=== PATIENT | female | born 1965 | race Caucasian/White ===

== ENCOUNTER 2017-02-09 06:45 | Emergency (ER) | payer MEDICAID ==
[~2017-02-09] VITALS: Ht 162.6 cm; Wt 121.6 kg
[~2017-02-09 06:45] MED LIST: HYDR25TA4; NAPROSYN; PROPANOLOL; ZOLP-158
[2017-02-09 07:21] VITALS: BP 130/88
[2017-02-09] MEDS ORDERED: ONDANSETRON HCL 4 MG/2 ML VIAL IM ONE (08:15)
[2017-02-09] MEDS ORDERED: HYDROmorphone HCL 2 MG/ML VL IM ONE (08:15)
[2017-02-09] MEDS ORDERED: METHOCARBAMOL 500 MG TAB PO ONE (08:15)
[2017-02-09] MEDS ORDERED: methylPREDNISolone SOD SUCC 125 MG/2 ML VL IM ONE (08:15)
== END 2017-02-09 09:12 | disposition home or self-care (01) ==
LOC: EDUNIT# 06:45 → ER 06:45
DX: M54.42 Lumbago with sciatica, left side (principal); E11.9 Type 2 diabetes mellitus without complications; I10 Essential (primary) hypertension; G89.29 Other chronic pain; E66.9 Obesity, unspecified; Z68.42 Body mass index [BMI] 45.0-49.9, adult
CPT/HCPCS: 96372; 99284; J1170; J2405; J2930

== ENCOUNTER 2017-07-21 20:05 | Emergency (ER) | payer MEDICAID, OTHER ==
[~2017-07-21] VITALS: Ht 162.6 cm; Wt 122.5 kg
[2017-07-21 21:20] LABS: Basophils # (auto) 0.1 uL; Basophils % (auto) 0.8 % (0.0-2.0); Eosinophils # (auto) 0.3 uL; Eosinophils % (auto) 4.1 % (0.0-7.0); Hematocrit 41.5 % (36.0-46.0); Hemoglobin 13.4 g/dL (12.2-16.2); Lymphocytes # (auto) 2.3 uL; Lymphocytes % (auto) 33.1 % (10.0-50.0); Mean Corpuscular Hemoglobin 27.3 pg (28.0-32.0); Mean Corpuscular Hgb Conc. 32.3 g/dL (32.0-36.0); Mean Corpuscular Volume 84.4 fL (80.0-100.0); Monocytes # (auto) 0.5 uL; Monocytes % (auto) 6.7 % (0.0-12.0); Neutrophils # (auto) 3.8 uL; Neutrophils % (auto) 55.3 % (37.0-80.0); Nucleated Red Blood Cells % 0.1 %; Platelet Count (auto) 241 10^3/uL (140-450); Red Blood Cells 4.92 10^6/uL (4.0-5.20); Red Cell Distribution Width 14.3 % (11.8-14.3)
[2017-07-21 21:24] LABS: Albumin 3.6 g/dL (3.4-5.0); BUN/Creatinine Ratio 16.7; Bilirubin, Total 0.2 mg/dL (0.2-1.0); Calcium 8.6 mg/dL (8.5-10.1); Total Protein 7.6 g/dL (6.4-8.2)
[2017-07-21 21:28] LABS: INR 0.97 (0.9-1.15); Partial Thromboplastin Time 26.1 sec (22.64-33.71); Prothrombin Time 10.6 sec (9.37-12.3)
[2017-07-21 21:52] LABS: Urine Bacteria NONE SEEN /hpf (None Seen); Urine Blood 3+ /uL (Negative); Urine Specific Gravity 1.014 (1.001-1.035); Urine WBC 1 /hpf (0 - 5)
[2017-07-22 04:56] VITALS: BP 159/89
== END 2017-07-22 05:42 | disposition home or self-care (01) ==
LOC: ER 20:05
DX: N92.0 Excessive and frequent menstruation with regular cycle (principal); E11.9 Type 2 diabetes mellitus without complications; I10 Essential (primary) hypertension; G43.909 Migraine, unspecified, not intractable, without status migrainosus; Z88.8 Allergy status to other drugs, medicaments and biological substances; E66.01 Morbid (severe) obesity due to excess calories; Z68.42 Body mass index [BMI] 45.0-49.9, adult
CPT/HCPCS: 36415; 80053; 81001; 84702; 85025; 85610; 85730

== ENCOUNTER 2021-02-14 13:34 | Inpatient (IN) | payer MEDICAID ==
[~2021-02-14] VITALS: Ht 160 cm; Wt 118.3 kg
[~2021-02-14 13:34] MED LIST changes: -ZOLP-158; +ZOLP5TAB
[2021-02-14 15:10] LABS: Basophils # (auto) 0 10 ^3/uL (0-0.2); Basophils % (auto) 0.3 % (0.0-2.0); Eosinophils # (auto) 0 10 ^3/uL (0-0.8); Eosinophils % (auto) 0.3 % (0.0-7.0); Hematocrit 48.5 % (36.0-46.0); Hemoglobin 16.4 g/dL (12.2-16.2); Lymphocytes # (auto) 0.8 10 ^3/uL (0.4-5.4); Lymphocytes % (auto) 27.8 % (10.0-50.0); Mean Corpuscular Hemoglobin 28.2 pg (28.0-32.0); Mean Corpuscular Hgb Conc. 33.8 g/dL (32.0-36.0); Mean Corpuscular Volume 83.4 fL (80.0-100.0); Monocytes # (auto) 0.3 10 ^3/uL (0-1.3); Monocytes % (auto) 10.9 % (0.0-12.0); Neutrophils # (auto) 1.7 10 ^3/uL (1.6-8.6); Neutrophils % (auto) 60.7 % (37.0-80.0); Nucleated Red Blood Cells % 0.4 %; Red Blood Cells 5.82 10^6/uL (4.0-5.20); Red Cell Distribution Width 14.5 % (11.8-14.3); White Blood Cell 2.8 10^3/uL (4.4-10.8)
[2021-02-14] MEDS ORDERED: ASCORBIC ACID 500 MG TAB PO ONE (15:15)
[2021-02-14] MEDS ORDERED: SODIUM CHLORIDE 0.9% 1,000 ML IV ONE (15:15)
[2021-02-14] MEDS ORDERED: SODIUM CHLORIDE 0.9% 500 ML IVB ONE (15:15)
[2021-02-14] MEDS ORDERED: AZITHROMYCIN 500MG/ 250ML 250 ML IV ONE (15:15)
[2021-02-14] MEDS ORDERED: cefTRIAXone 1GM/50ML D5W 50 ML IV ONE (15:15)
[2021-02-14] MEDS ORDERED: CHOLECALCIFEROL (VITD3) 2,000 UNIT CAP/TAB PO ONE (15:15)
[2021-02-14] MEDS ORDERED: ZINC SULFATE 220mg CAP or TAB PO ONE (15:15)
[2021-02-14 15:32] LABS: Alanine Aminotransferase 37 U/L (13-56); Anion Gap 8 (5-15); Aspartate Aminotransferase 59 U/L (15-37); BUN/Creatinine Ratio 14.1; Blood Urea Nitrogen 12 mg/dL (7-18); Calcium 8.4 mg/dL (8.5-10.1); Carbon Dioxide 28 mmol/L (21-32); Chloride 98 mmol/L (98-107); GFR African American 90 mL/min; GFR Non-African American 74 mL/min; Glucose 97 mg/dL (74-106); Potassium 3.5 mmol/L (3.5-5.1); Sodium 134 mmol/L (136-145)
[2021-02-14 15:37] LABS: Alkaline Phosphatase 107 U/L (45-117); Bilirubin, Total 0.4 mg/dL (0.2-1.0); Total Protein 7.7 g/dL (6.4-8.2)
[2021-02-14 17:20] LABS: Urine Bacteria FEW /hpf (None Seen); Urine Blood 2+ /uL (Negative); Urine Mucus FEW (None Seen); Urine WBC 101 /hpf (0 - 5); Urine WBC Clumps PRESENT /hpf (None Seen)
[2021-02-14 17:23] LABS: Urine Specific Gravity > 1.050 (1.001-1.035)
[2021-02-14] MEDS ORDERED: hydrOXYchloroQUINE SULFATE 200 MG TAB PO ONE (17:30)
[2021-02-14] MEDS ORDERED: DexAMETHasone SOD PHOS 10MG/1ML VIAL INJ IV ONE (17:30)
[2021-02-14] MEDS ORDERED: ACETAMINOPHEN 325 MG TAB PO ONE (19:00)
[2021-02-14] MEDS ORDERED: diazePAM 5 MG TAB PO ONE (19:00)
[2021-02-14 19:56] LABS: Magnesium 1.9 mg/dL (1.6-2.6)
[2021-02-14] MEDS ORDERED: ACETAMINOPHEN 500 MG TAB PO PRN (21:15)
[2021-02-14] MEDS ORDERED: DEXTROSE (50%) 50ML SYRG IV PRN (21:30)
[2021-02-14] MEDS ORDERED: DOCUSATE SOD 100 MG CAP PO PRN (21:30)
[2021-02-14] MEDS ORDERED: ONDANSETRON HCL 4 MG/2 ML VIAL IV PRN (21:30)
[2021-02-14] MEDS ORDERED: NITROGLYCERIN 0.4 MG SL TAB SL PRN (21:30)
[2021-02-14] MEDS: InsuLIN REG 1unit/0.01ml Soln (100units/ml) SC SCH (22:00)
[2021-02-14] MEDS: BUDESONIDE (INHALATION) 180 MCG IH IN SCH (22:00)
[2021-02-14 22:19] VITALS: BP 114/68
[2021-02-14] MEDS ORDERED: ACETAMINOPHEN 325 MG TAB PO PRN (23:30)
[2021-02-15] MEDS ORDERED: HYDROmorphone HCL 2 MG/ML VL IV ONE
[2021-02-15] MEDS: SODIUM CHLORIDE 0.9% 1,000 ML IV SCH ×2 (00:28→14:56)
[2021-02-15] MEDS: FAMOTIDINE (10MG/ML) 2ML VL IV SCH ×3 (00:29→22:00)
[2021-02-15] MEDS: DOXYCYCLINE 100MG/250ML 250 ML IV SCH ×2 (00:29→09:48)
[2021-02-15] MEDS: HYDROmorphone HCL 2 MG/ML VL IV PRN ×4 (00:37→23:11)
[2021-02-15] MEDS: ACCU-CHEK COMFORT CURVE STRIP VI SCH ×3 (01:03→10:59)
[2021-02-15 05:00] VITALS: BP 116/67
[2021-02-15] MEDS: InsuLIN REG 1unit/0.01ml Soln (100units/ml) SC SCH ×2 (06:40→10:59)
[2021-02-15 07:03] LABS: Basophils # (auto) 0 10 ^3/uL (0-0.2); Basophils % (auto) 0.2 % (0.0-2.0); Eosinophils # (auto) 0 10 ^3/uL (0-0.8); Hematocrit 41.8 % (36.0-46.0); Hemoglobin 14.1 g/dL (12.2-16.2); Lymphocytes # (auto) 0.7 10 ^3/uL (0.4-5.4); Lymphocytes % (auto) 28.8 % (10.0-50.0); Mean Corpuscular Hemoglobin 27.8 pg (28.0-32.0); Mean Corpuscular Hgb Conc. 33.8 g/dL (32.0-36.0); Mean Corpuscular Volume 82.3 fL (80.0-100.0); Monocytes # (auto) 0.3 10 ^3/uL (0-1.3); Monocytes % (auto) 13.2 % (0.0-12.0); Neutrophils # (auto) 1.3 10 ^3/uL (1.6-8.6); Neutrophils % (auto) 57.8 % (37.0-80.0); Nucleated Red Blood Cells % 0.5 %; Red Blood Cells 5.08 10^6/uL (4.0-5.20); Red Cell Distribution Width 14.2 % (11.8-14.3); White Blood Cell 2.3 10^3/uL (4.4-10.8)
[2021-02-15 07:20] LABS: Potassium 3.4 mmol/L (3.5-5.1)
[2021-02-15 07:29] LABS: Albumin 2.3 g/dL (3.4-5.0); Bilirubin, Total 0.2 mg/dL (0.2-1.0); Calcium 8.1 mg/dL (8.5-10.1); Total Protein 6.4 g/dL (6.4-8.2)
[2021-02-15] MEDS: DexAMETHasone SOD PHOS 10MG/1ML VIAL INJ IV SCH (08:44)
[2021-02-15] MEDS: CHOLECALCIFEROL (VITD3) 2,000 UNIT CAP/TAB PO SCH (08:45)
[2021-02-15] MEDS: ASCORBIC ACID 1,000 MG TAB PO SCH (08:45)
[2021-02-15] MEDS: ZINC SULFATE 220mg CAP or TAB PO SCH (08:45)
[2021-02-15] MEDS: MULTIPLE VITAMIN TAB PO SCH (08:45)
[2021-02-15] MEDS: ENOXAPARIN SOD 40 MG/0.4 ML SYRINGE SC SCH (08:45)
[2021-02-15 09:00] VITALS: BP 111/69
[2021-02-15] MEDS ORDERED: levoFLOXacin 750MG 150 ML IV SCH (10:00)
[2021-02-15] MEDS ORDERED: REMDESIVIR PER PHARMACY 0 ML IV SCH (10:45)
[2021-02-15] MEDS: ALBUTEROL SULF HFA 90MCG INH 200DOSE IN PRN ×2 (11:06→21:00)
[2021-02-15] MEDS: BUDESONIDE (INHALATION) 180 MCG IH IN SCH ×2 (11:06→20:38)
[2021-02-15 13:00] VITALS: BP 101/64
[2021-02-15] MEDS: POTASSIUM CHL 20 Meq TABLET PO SCH ×2 (14:56→21:59)
[2021-02-15] MEDS ORDERED: REMDESIVIR 200 MG in NS 210ml LOADING DOSE ADULT IV ONE (15:00)
[2021-02-15] MEDS ORDERED: BUTA-281 PO (16:38)
[2021-02-15] MEDS ORDERED: AMIT10TA8 PO (16:38)
[2021-02-15] MEDS ORDERED: LOSA25TA38 PO (16:38)
[2021-02-15 16:57] VITALS: BP 109/62
[2021-02-15] MEDS ORDERED: ACETAMINOPHEN PO SCH (21:00)
[2021-02-15] MEDS ORDERED: CAFFEINE PO SCH (21:00)
[2021-02-15] MEDS ORDERED: BUTALBITAL PO SCH (21:00)
[2021-02-15 21:48] VITALS: BP 101/57
[2021-02-15] MEDS: AMITRIPTYLINE HCL 25 MG TAB PO SCH (21:59)
[2021-02-16 05:00] VITALS: BP 92/53
[2021-02-16] MEDS: SODIUM CHLORIDE 0.9% 1,000 ML IV SCH ×2 (06:50→23:30)
[2021-02-16 07:11] LABS: Basophils # (auto) 0 10 ^3/uL (0-0.2); Basophils % (auto) 0.8 % (0.0-2.0); Eosinophils # (auto) 0 10 ^3/uL (0-0.8); Eosinophils % (auto) 0.1 % (0.0-7.0); Hematocrit 41.1 % (36.0-46.0); Hemoglobin 13.7 g/dL (12.2-16.2); Lymphocytes # (auto) 0.8 10 ^3/uL (0.4-5.4); Lymphocytes % (auto) 26.4 % (10.0-50.0); Mean Corpuscular Hemoglobin 27.9 pg (28.0-32.0); Mean Corpuscular Hgb Conc. 33.3 g/dL (32.0-36.0); Mean Corpuscular Volume 83.6 fL (80.0-100.0); Monocytes # (auto) 0.2 10 ^3/uL (0-1.3); Neutrophils # (auto) 1.9 10 ^3/uL (1.6-8.6); Neutrophils % (auto) 64.7 % (37.0-80.0); Nucleated Red Blood Cells % 0.3 %; Red Blood Cells 4.91 10^6/uL (4.0-5.20); Red Cell Distribution Width 14.3 % (11.8-14.3)
[2021-02-16] MEDS: BUDESONIDE (INHALATION) 180 MCG IH IN SCH ×2 (07:24→19:19)
[2021-02-16] MEDS: ALBUTEROL SULF HFA 90MCG INH 200DOSE IN PRN ×2 (07:24→19:19)
[2021-02-16 07:27] LABS: Calcium 8.2 mg/dL (8.5-10.1); Potassium 4.3 mmol/L (3.5-5.1)
[2021-02-16 07:33] LABS: Bilirubin, Total 0.2 mg/dL (0.2-1.0)
[2021-02-16 09:00] VITALS: BP 124/64
[2021-02-16] MEDS: levoFLOXacin 500MG 100 ML IV SCH (09:12)
[2021-02-16] MEDS: CHOLECALCIFEROL (VITD3) 2,000 UNIT CAP/TAB PO SCH (09:13)
[2021-02-16] MEDS: ASCORBIC ACID 1,000 MG TAB PO SCH (09:13)
[2021-02-16] MEDS: DexAMETHasone SOD PHOS 10MG/1ML VIAL INJ IV SCH (09:13)
[2021-02-16] MEDS: FAMOTIDINE (10MG/ML) 2ML VL IV SCH ×2 (09:13→22:23)
[2021-02-16] MEDS: ZINC SULFATE 220mg CAP or TAB PO SCH (09:13)
[2021-02-16] MEDS: MULTIPLE VITAMIN TAB PO SCH (09:13)
[2021-02-16] MEDS: HYDROmorphone HCL 2 MG/ML VL IV PRN ×3 (09:14→22:24)
[2021-02-16] MEDS: ENOXAPARIN SOD 40 MG/0.4 ML SYRINGE SC SCH (09:25)
[2021-02-16] MEDS ORDERED: ACETAMINOPHEN PO PRN (10:00)
[2021-02-16] MEDS ORDERED: CAFFEINE PO PRN (10:00)
[2021-02-16] MEDS ORDERED: BUTALBITAL PO PRN (10:00)
[2021-02-16 13:00] VITALS: BP 127/72
[2021-02-16] MEDS: REMDESIVIR 100mg 100 MG in SODIUM CHL 0.9% 230 ML IV SCH (15:57)
[2021-02-16 17:00] VITALS: BP 113/69
[2021-02-16] MEDS: AMITRIPTYLINE HCL 25 MG TAB PO SCH (22:23)
[2021-02-16] MEDS: guaiFENesin-DM 100/10mg/5ml SYR PO PRN (23:43)
[2021-02-17 05:00] VITALS: BP 109/69
[2021-02-17 06:33] LABS: Potassium 3.8 mmol/L (3.5-5.1)
[2021-02-17 06:46] LABS: Albumin 1.9 g/dL (3.4-5.0); BUN/Creatinine Ratio 22.2; Bilirubin, Total 0.3 mg/dL (0.2-1.0); Calcium 7.9 mg/dL (8.5-10.1); Total Protein 5.9 g/dL (6.4-8.2)
[2021-02-17 07:28] LABS: Basophils # (auto) 0 10 ^3/uL (0-0.2); Basophils % (auto) 0.4 % (0.0-2.0); Eosinophils # (auto) 0 10 ^3/uL (0-0.8); Eosinophils % (auto) 0.1 % (0.0-7.0); Hematocrit 39.1 % (36.0-46.0); Hemoglobin 13.2 g/dL (12.2-16.2); Lymphocytes # (auto) 1.3 10 ^3/uL (0.4-5.4); Lymphocytes % (auto) 39.6 % (10.0-50.0); Mean Corpuscular Hemoglobin 28.5 pg (28.0-32.0); Mean Corpuscular Hgb Conc. 33.9 g/dL (32.0-36.0); Mean Corpuscular Volume 84.2 fL (80.0-100.0); Monocytes # (auto) 0.4 10 ^3/uL (0-1.3); Monocytes % (auto) 11.6 % (0.0-12.0); Neutrophils # (auto) 1.6 10 ^3/uL (1.6-8.6); Neutrophils % (auto) 48.3 % (37.0-80.0); Nucleated Red Blood Cells % 0.4 %; Red Blood Cells 4.65 10^6/uL (4.0-5.20); Red Cell Distribution Width 14.5 % (11.8-14.3); White Blood Cell 3.2 10^3/uL (4.4-10.8)
[2021-02-17] MEDS: ALBUTEROL SULF HFA 90MCG INH 200DOSE IN PRN ×2 (07:37→20:19)
[2021-02-17] MEDS: BUDESONIDE (INHALATION) 180 MCG IH IN SCH ×2 (07:38→20:19)
[2021-02-17 08:52] VITALS: BP 118/68
[2021-02-17] MEDS: ZINC SULFATE 220mg CAP or TAB PO SCH (09:46)
[2021-02-17] MEDS: CHOLECALCIFEROL (VITD3) 2,000 UNIT CAP/TAB PO SCH (09:46)
[2021-02-17] MEDS: DexAMETHasone SOD PHOS 10MG/1ML VIAL INJ IV SCH (09:46)
[2021-02-17] MEDS: ASCORBIC ACID 1,000 MG TAB PO SCH (09:46)
[2021-02-17] MEDS: FAMOTIDINE (10MG/ML) 2ML VL IV SCH ×2 (09:46→21:46)
[2021-02-17] MEDS: levoFLOXacin 500MG 100 ML IV SCH (09:46)
[2021-02-17] MEDS: MULTIPLE VITAMIN TAB PO SCH (09:46)
[2021-02-17] MEDS: ENOXAPARIN SOD 40 MG/0.4 ML SYRINGE SC SCH (09:47)
[2021-02-17] MEDS: guaiFENesin-DM 100/10mg/5ml SYR PO PRN (10:06)
[2021-02-17] MEDS: HYDROmorphone HCL 2 MG/ML VL IV PRN ×3 (10:06→21:58)
[2021-02-17 12:53] VITALS: BP 116/69
[2021-02-17] MEDS: REMDESIVIR 100mg 100 MG in SODIUM CHL 0.9% 230 ML IV SCH (15:24)
[2021-02-17 17:00] VITALS: BP 101/59
[2021-02-17] MEDS: SODIUM CHLORIDE 0.9% 1,000 ML IV SCH (17:11)
[2021-02-17] MEDS: AMITRIPTYLINE HCL 25 MG TAB PO SCH (21:46)
[2021-02-17 22:00] VITALS: BP 113/64
[2021-02-18 03:11] VITALS: BP 113/64
[2021-02-18 05:00] VITALS: BP 107/67
[2021-02-18] MEDS: HYDROmorphone HCL 2 MG/ML VL IV PRN ×4 (05:39→22:01)
[2021-02-18] MEDS: guaiFENesin-DM 100/10mg/5ml SYR PO PRN (05:44)
[2021-02-18 06:43] LABS: Basophils # (auto) 0 10 ^3/uL (0-0.2); Basophils % (auto) 0.3 % (0.0-2.0); Eosinophils # (auto) 0 10 ^3/uL (0-0.8); Hematocrit 38.1 % (36.0-46.0); Hemoglobin 13.2 g/dL (12.2-16.2); Lymphocytes % (auto) 33.7 % (10.0-50.0); Mean Corpuscular Hemoglobin 28.7 pg (28.0-32.0); Mean Corpuscular Hgb Conc. 34.6 g/dL (32.0-36.0); Monocytes # (auto) 0.5 10 ^3/uL (0-1.3); Neutrophils # (auto) 1.5 10 ^3/uL (1.6-8.6); Nucleated Red Blood Cells % 0.2 %; Red Blood Cells 4.59 10^6/uL (4.0-5.20); Red Cell Distribution Width 14.7 % (11.8-14.3)
[2021-02-18 06:52] LABS: Potassium 3.6 mmol/L (3.5-5.1)
[2021-02-18 06:58] LABS: Albumin 1.8 g/dL (3.4-5.0); BUN/Creatinine Ratio 18.8; Bilirubin, Total 0.2 mg/dL (0.2-1.0); Calcium 8.1 mg/dL (8.5-10.1); Total Protein 6.1 g/dL (6.4-8.2)
[2021-02-18] MEDS: BUDESONIDE (INHALATION) 180 MCG IH IN SCH ×2 (07:08→18:55)
[2021-02-18] MEDS: ALBUTEROL SULF HFA 90MCG INH 200DOSE IN PRN ×2 (07:08→18:55)
[2021-02-18 08:44] VITALS: BP 101/63
[2021-02-18] MEDS: DexAMETHasone SOD PHOS 10MG/1ML VIAL INJ IV SCH (09:56)
[2021-02-18] MEDS: MULTIPLE VITAMIN TAB PO SCH (09:58)
[2021-02-18] MEDS: levoFLOXacin 500MG 100 ML IV SCH (09:58)
[2021-02-18] MEDS: FAMOTIDINE (10MG/ML) 2ML VL IV SCH ×2 (09:58→21:50)
[2021-02-18] MEDS: ASCORBIC ACID 1,000 MG TAB PO SCH (09:59)
[2021-02-18] MEDS: ENOXAPARIN SOD 40 MG/0.4 ML SYRINGE SC SCH (09:59)
[2021-02-18] MEDS: ZINC SULFATE 220mg CAP or TAB PO SCH (10:00)
[2021-02-18] MEDS: CHOLECALCIFEROL (VITD3) 2,000 UNIT CAP/TAB PO SCH (10:16)
[2021-02-18] MEDS ORDERED: IOHEXOL 350 MG/ML 100ML IJ ONE ×2 (11:58→15:34)
[2021-02-18 13:00] VITALS: BP 107/64
[2021-02-18] MEDS: REMDESIVIR 100mg 100 MG in SODIUM CHL 0.9% 230 ML IV SCH (15:04)
[2021-02-18] MEDS: LOPERAMIDE HCL 2 MG CAP PO PRN ×2 (16:40→20:19)
[2021-02-18 16:56] VITALS: BP 126/65
[2021-02-18] MEDS: SODIUM CHLORIDE 0.9% 1,000 ML IV SCH (20:00)
[2021-02-18] MEDS: AMITRIPTYLINE HCL 25 MG TAB PO SCH (21:50)
[2021-02-18 22:00] VITALS: BP 127/67
[2021-02-19] MEDS: SODIUM CHLORIDE 0.9% 1,000 ML IV SCH ×2 (01:30→17:46)
[2021-02-19 05:00] VITALS: BP 125/75
[2021-02-19] MEDS: HYDROmorphone HCL 2 MG/ML VL IV PRN ×3 (06:55→21:58)
[2021-02-19] MEDS: LOPERAMIDE HCL 2 MG CAP PO PRN ×2 (06:56→11:57)
[2021-02-19] MEDS: BUDESONIDE (INHALATION) 180 MCG IH IN SCH ×2 (07:14→18:48)
[2021-02-19] MEDS: ALBUTEROL SULF HFA 90MCG INH 200DOSE IN PRN ×2 (07:14→18:47)
[2021-02-19 09:00] VITALS: BP 120/70
[2021-02-19] MEDS: DexAMETHasone SOD PHOS 10MG/1ML VIAL INJ IV SCH (09:25)
[2021-02-19] MEDS: CHOLECALCIFEROL (VITD3) 2,000 UNIT CAP/TAB PO SCH (09:26)
[2021-02-19] MEDS: MULTIPLE VITAMIN TAB PO SCH (09:26)
[2021-02-19] MEDS: FAMOTIDINE (10MG/ML) 2ML VL IV SCH ×2 (09:26→21:58)
[2021-02-19] MEDS: ASCORBIC ACID 1,000 MG TAB PO SCH (09:26)
[2021-02-19] MEDS: ENOXAPARIN SOD 40 MG/0.4 ML SYRINGE SC SCH (09:26)
[2021-02-19] MEDS: ZINC SULFATE 220mg CAP or TAB PO SCH (09:26)
[2021-02-19] MEDS: levoFLOXacin 500MG 100 ML IV SCH (09:26)
[2021-02-19 12:43] VITALS: BP 115/63
[2021-02-19] MEDS: REMDESIVIR 100mg 100 MG in SODIUM CHL 0.9% 230 ML IV SCH (14:49)
[2021-02-19 16:36] VITALS: BP 122/72
[2021-02-19] MEDS ORDERED: ZINC220C8 PO (18:42)
[2021-02-19] MEDS ORDERED: ALBUAER3 IN (18:42)
[2021-02-19] MEDS ORDERED: ASCO10003 PO (18:42)
[2021-02-19] MEDS ORDERED: DEXT1SYP9 PO (18:42)
[2021-02-19] MEDS ORDERED: CHOL1CAP47 PO (18:42)
[2021-02-19] MEDS ORDERED: DEXA6TAB6 PO (18:42)
[2021-02-19] MEDS: guaiFENesin-DM 100/10mg/5ml SYR PO PRN (19:49)
[2021-02-19] MEDS: AMITRIPTYLINE HCL 25 MG TAB PO SCH (21:58)
[2021-02-19 22:00] VITALS: BP 126/75
[2021-02-20 05:00] VITALS: BP 121/74
[2021-02-20] MEDS: HYDROmorphone HCL 2 MG/ML VL IV PRN (06:43)
[2021-02-20 08:40] VITALS: BP 128/68
[2021-02-20] MEDS: ALBUTEROL SULF HFA 90MCG INH 200DOSE IN PRN (09:09)
[2021-02-20] MEDS: BUDESONIDE (INHALATION) 180 MCG IH IN SCH (09:09)
[2021-02-20] MEDS: levoFLOXacin 500MG 100 ML IV SCH (10:00)
[2021-02-20] MEDS: ENOXAPARIN SOD 40 MG/0.4 ML SYRINGE SC SCH (10:00)
[2021-02-20] MEDS: FAMOTIDINE (10MG/ML) 2ML VL IV SCH (10:00)
[2021-02-20] MEDS: DexAMETHasone SOD PHOS 10MG/1ML VIAL INJ IV SCH (10:18)
[2021-02-20] MEDS: ASCORBIC ACID 1,000 MG TAB PO SCH (10:19)
[2021-02-20] MEDS: MULTIPLE VITAMIN TAB PO SCH (10:19)
[2021-02-20] MEDS: ZINC SULFATE 220mg CAP or TAB PO SCH (10:19)
[2021-02-20] MEDS: CHOLECALCIFEROL (VITD3) 2,000 UNIT CAP/TAB PO SCH (10:20)
== END 2021-02-20 11:25 | disposition home health service (06) | DRG 137 ==
LOC: ER 13:34 → TELE 21:32 → TELE-EAST 23:31
PROVIDERS: ADMIT Nurse Practitioner Family; ATTEND Internal Medicine
PROC: 05HB33Z Insertion of Infusion Device into Right Basilic Vein, Percutaneous Approach (ICD-10-PCS; principal; 2021-02-15)
PROC: B54MZZA Ultrasonography of Right Upper Extremity Veins, Guidance (ICD-10-PCS; 2021-02-15)
PROC: XW033E5 Introduction of Remdesivir Anti-infective into Peripheral Vein, Percutaneous Approach, New Technology Group 5 (ICD-10-PCS; 2021-02-15)
DX: U07.1 COVID-19 (principal); J96.01 Acute respiratory failure with hypoxia; J12.82 Pneumonia due to coronavirus disease 2019; E44.1 Mild protein-calorie malnutrition; N30.01 Acute cystitis with hematuria; I10 Essential (primary) hypertension; E66.9 Obesity, unspecified; F32.9 Major depressive disorder, single episode, unspecified; E11.9 Type 2 diabetes mellitus without complications; E87.6 Hypokalemia; J98.11 Atelectasis; G43.909 Migraine, unspecified, not intractable, without status migrainosus; Z86.73 Personal history of transient ischemic attack (TIA), and cerebral infarction without residual deficits; Z79.899 Other long term (current) drug therapy; Z88.6 Allergy status to analgesic agent; Z88.5 Allergy status to narcotic agent; Z88.8 Allergy status to other drugs, medicaments and biological substances; Z68.42 Body mass index [BMI] 45.0-49.9, adult; I69.30 Unspecified sequelae of cerebral infarction
CPT/HCPCS: 36415; 36600; 71045; 71275; 80053; 81001; 82306; 82728; 82805; 82962; 83036; 83605; 83615; 83690; 83735; 84443; 84484; 85025; 85379; 86141; 87086; 87426; 87493; 93005; 93970; 94640; 96365; 96367; G0378; J0696; J1100; J1956; J2405; J3490

== ENCOUNTER 2024-12-12 18:53 | Inpatient (IN) | payer MEDICAID ==
[~2024-12-12] VITALS: Ht 162.6 cm; Wt 138.0 kg
[~2024-12-12 18:53] MED LIST changes: +ALBUAER3 IN; +AMIT-400 PO; +ASCO10003 PO; +BUTA-281 PO; +CHOL1CAP47 PO; +DEXA6TAB6 PO; +DEXT1SYP9 PO; -HYDR25TA4; -NAPROSYN; -PROPANOLOL; +ZINC220C8 PO; -ZOLP5TAB
--- NOTE | 2024-12-12 19:44 | ED.PDOC ---
SOB-HPI HPI Comments 59y F who presents to the ED for chief complaint of shortness of breath. Pt states she has been having shortness of breath with associated bilateral lower extremity swelling for the past 2 days. Pt otherwise denies chest pain, diaphoresis, palpitations, fever, cough, chills, or any associated symptoms. Pt otherwise has no cardiac history. Pt denies any other symptoms at this time. Chief Complaint: Extremity Swelling Time Seen by MD: 19:41 Primary Care Provider: OFELIA Reid notes: Medications, Allergies Information Source: Patient Mode of Arrival: Ambulatory Past Medical History PAST MEDICAL HISTORY: CVA, Depression, DM, HTN, Denies Surgical History: SEAM CLOSER History: No Pertinent SEAM CLOSER History Family History Family History: Unknown Social History Smoker: Non-Smoker Alcohol: Occasionally Drugs: Denies Drug Use Lives In: Home Constitutional: denies: chills, diaphoresis, fatigue, fever, malaise, sweats, weakness, others EENTM: denies: blurred vision, double vision, ear bleeding, ear discharge, ear drainage, ear pain, ear ringing, eye pain, eye redness, hearing loss, mouth pain, mouth swelling, nasal discharge, nose bleeding, nose congestion, nose pain, photophobia, tearing, throat pain, throat swelling, voice changes, others Respiratory: reports: shortness of breath; denies: cough, hemoptysis, orthopnea, SOB at rest, SOB with excertion, stridor, wheezing, others Cardiovascular: denies: chest pain, dizzy spells, diaphoresis, Dyspnea on exertion, edema, irregular heart beat, left arm pain, lightheadedness, pa lpitations, PND, syncope, others Gastrointestinal: denies: abdomen distended, abdominal pain, blood streaked bowels, constipated, diarrhea, dysphagia, difficulty swallowing, hematemesis, melena, nausea, poor appetite, poor fluid intake, rectal bleeding, rectal pain, vomiting, others Genitourinary: denies: abnormal vagina bleeding, burning, dyspareunia, dysuria, flank pain, frequency, hematuria, incontinence, pain, , vagina discharge, urgency, others Neurological: denies: dizziness, fainting, headache, left sided numbness, left sided weakness, numbness, paresthesia, pre-existing deficit, right sided numbness, right sided weakness, seizure, speech problems, tingling, tremors, weakness, others Musculoskeletal: reports: joint swelling (b/l lower extremity swelling); denies : back pain, gout, joint pain, muscle pain, muscle stiffness, neck pain, others Integumetry: denies: bruises, change in color, change in hair/nails, dryness, laceration, lesions, lumps, rash, wounds, others Allergic/Immunocompromised: denies: Difficulty Healing, Frequent Infections, Hives, Itching, others Hematologic/Lymphatic: denies: anemia, blood clots, easy bleeding, easy bruising, swollen glands, others Endocrine: denies: excessive hunger, excessive sweating, excessive thirst, excessive urination, flushing, intolerance to cold, intolerance to heat, unexplained weight gain, unexplained weight loss, others Psychiatric: denies: anxiety, bipolar disorder, depression, hopeless, panic disorder, schizophrenia, sleepless, suicidal, others All Other Systems: Reviewed and Negative Physical Exam General Appearance: No Apparent Distress, Normal HEENT: Normal ENT Inspection, Pharynx Normal, TMs Normal Neck: Full Range of Motion, Non-Tender, Normal, Normal Inspection Respiratory: Chest Non-Tender, Lungs Clear, No Accessory Muscle Use, No Res piratory Distress, Normal Breath Sounds Cardiovascular: No Edema, No JVD, No Murmur, No Gallop, Normal Peripheral Pulses, Regular Rate/Rhythm Breast Exam: Deferred Gastrointestinal: No Organomegaly, Non Tender, No Pulsatile Mass, Normal Bowel Sounds, Soft Genitalia: Deferred Pelvic: Deferred Rectal: Deferred Extremities: No calf tenderness, Normal capillary refill, Normal inspection, Normal range of motion, Non-tender, No pedal edema Musculoskeletal : Apperance: Normal Neurologic: Alert, insert cutter II-XII nml as Tested, No Motor Deficits, Normal Affect, Normal Mood, No Sensory Deficits Cerebellar Function: Normal Reflexes: Normal Skin: Dry, Normal Color, Warm Lymphatic: No Adenopathy EKG EKG : Pulse Rate (adult): 75 [place]: Normal Cardiac Rhythm: NSR Block: None Hypertrophy: None ST: Normal Was a procedure done? Was a procedure done?: No Differential Dx Differential Diagnosis: Anxiety, Asthma, Bronchitis, CHF, COPD, Pneumonia, Respiratory Distress, URI X-Ray, Labs, Meds, VS Vital Signs Date Time Temp Pulse Resp B/P (MAP) Pulse Ox O2 Delivery O2 Flow Rate FiO2 6/4/25 19:44 75 12/12/24 19:29 75 12/12/24 19:26 98.5 73 16 179/84 (115) 94 98.5 Lab Test 12/12/24 20:28 12/12/24 19:38 Range/Units Troponin I High Sensitivity 8 10 </=34 ng/L White Blood Count 6.1 4.4-10.8 10^3/uL Red Blood Count 5.05 4.0-5.20 10^6/uL Hemoglobin 14.0 12.2-16.2 g/dL Hematocrit 41.7 36.0-46.0 % Mean Corpuscular Volume 82.6 80.0-100.0 fL Mean Corpuscular Hemoglobin 27.8 L 28.0-32.0 pg Mean Corpuscular Hemoglobin Concent 33.7 32.0-36.0 g/dL Red Cell Distribution Width 14.1 11.8-14.3 % Platelet Count 196 140-450 10^3/uL Mean Platelet Volume 8.9 6.9-10.8 fL Neutrophils (%) (Auto) 45.7 37.0-80.0 % Lymphocytes (%) (Auto) 37.9 10.0-50.0 % Monocytes (%) (Auto) 11.7 0.0-12.0 % Eosinophils (%) (Auto) 3.9 0.0-7.0 % Basophils (%) (Auto) 0.8 0.0-2.0 % Neutrophils # (Auto) 2.8 1.6-8.6 10 ^3/uL Lymphocytes # (Auto) 2.3 0.4-5.4 10 ^3/uL Monocytes # (Auto) 0.7 0-1.3 10 ^3/uL Eosinophils # (Auto) 0.2 0-0.8 10 ^3/uL Basophils # (Auto) 0 0-0.2 10 ^3/uL Nucleated Red Blood Cells 0.1 % Sodium Level 141 136-145 mmol/L Potassium Level 4.3 3.5-5.1 mmol/L Chloride Level 107 98-107 mmol/L Carbon Dioxide Level 28 20-31 mmol/L Anion Gap 6 5-15 Blood Urea Nitrogen 16 9-23 mg/dL Creatinine 0.98 0.550-1.02 mg/dL Glomerular Filtration Rate Calc 67 >90 mL/min BUN/Creatinine Ratio 16.3 10.0-20.0 Serum Glucose 90 74-106 mg/dL Calcium Level 10.0 8.7-10.4 mg/dL B-Type Natriuretic Peptide 38.11 0-100 pg/mL Time of 1ST Reevaluation: 20:10 Reevaluation 1ST: Unchanged Patient Education/Counseling: Diagnosis, Treatment Family Education/Counseling: No Family Present Departure 1 Departure Time of Disposition: 21:57 (Patient's worsening shortness of breath and lower extremity edema concerning for heart failure. Patient's labs are benign. Patient's chest x-ray with some vascular congestion. We will admit patient for further workup and expert consultation) Impression: Primary Impression: Shortness of breath Additional Impressions: Lower extremity edema Suspected congestive heart failure Disposition: ADMITTED INPATIENT Admit to: Med Surg Condition: Serious Critical Care Note Critical Care Time?: Yes Critical care comment: Shortness of breath Authorized and Performed by: Mehdi Modi MD Total critical care time: Approximately 39 minutes Due to a high probability of clinically significant, life threatening deterioration, the patient required my highest level of preparedness to intervene emergently and I personally spent this critical care time directly and personally managing the patient. This critical care time included obtaining a history; examining the patient; pulse oximetry; ordering and review of studies; arranging urgent treatment with development of a management plan; evaluation of patient's response to treatment; frequent reassessment; and, discussions with other providers. This critical care time was performed to assess and manage the high probability of imminent, life-threatening deterioration that could result in multi-organ failure. It was exclusive of separately billable procedures and treating other patients and teaching time. Please see my other sections and the rest of the note for further information on patient assessment and treatment. Stability Stability form required: No Heart Score Heart Score: Heart Score Response (Comments) Value History Slightly Suspicious 0 EKG Normal 0 Age 45-64 1 Risk Factors No known risk factors 0 Troponin Normal limit 0 Total 1 I personally scribed for MEHDI MODI MD ([email or web address]) on 12/12/24 at 19:44. Electronically submitted by Ayl Druan (LEX). MEHDI MODI MD Dec 12, 2024 19:44
[2024-12-12 19:56] LABS: Basophils # (auto) 0 10 ^3/uL (0-0.2); Basophils % (auto) 0.8 % (0.0-2.0); Eosinophils # (auto) 0.2 10 ^3/uL (0-0.8); Eosinophils % (auto) 3.9 % (0.0-7.0); Hematocrit 41.7 % (36.0-46.0); Lymphocytes # (auto) 2.3 10 ^3/uL (0.4-5.4); Lymphocytes % (auto) 37.9 % (10.0-50.0); Mean Corpuscular Hemoglobin 27.8 pg (28.0-32.0); Mean Corpuscular Hgb Conc. 33.7 g/dL (32.0-36.0); Mean Corpuscular Volume 82.6 fL (80.0-100.0); Monocytes # (auto) 0.7 10 ^3/uL (0-1.3); Monocytes % (auto) 11.7 % (0.0-12.0); Neutrophils # (auto) 2.8 10 ^3/uL (1.6-8.6); Neutrophils % (auto) 45.7 % (37.0-80.0); Nucleated Red Blood Cells % 0.1 %; Platelet Count (auto) 196 10^3/uL (140-450); Red Blood Cells 5.05 10^6/uL (4.0-5.20); Red Cell Distribution Width 14.1 % (11.8-14.3); White Blood Cell 6.1 10^3/uL (4.4-10.8)
[2024-12-12 19:57] LABS: Potassium 4.3 mmol/L (3.5-5.1); Sodium 141 mmol/L (136-145)
[2024-12-12 19:58] LABS: Anion Gap 6 (5-15); Carbon Dioxide 28 mmol/L (20-31)
[2024-12-12 20:00] LABS: Chloride 107 mmol/L (98-107)
[2024-12-12 20:03] LABS: BUN/Creatinine Ratio 16.3 (10.0-20.0); Blood Urea Nitrogen 16 mg/dL (9-23); Glucose 90 mg/dL (74-106)
--- NOTE | 2024-12-12 21:19 | DVH ---
EXAM: XY CHEST PORTABLE CLINICAL HISTORY: sob TECHNIQUE: Single AP view of the chest WID: COMPARISON: CHEST PORTABLE on DOS: 02/18/21 FINDINGS: Lines and tubes: None Chest: The heart size and pulmonary vasculature is within normal limits. No pleural effusion, pneumothorax, or consolidation. The osseous structures are grossly intact. IMPRESSION: No acute cardiopulmonary abnormality.
[2024-12-12] MEDS: FUROSEMIDE 40 MG/4 ML VIAL IV ONE (22:00)
[2024-12-13] VITALS (9 sets, daily range): BP systolic 122–148; BP diastolic 64–75; PULSE 64–77; RESP 14–18; TEMP 97.7–98; O2SAT 95–99
[2024-12-13] MEDS: NAPROXEN 500 MG TAB PO ONE
[2024-12-13 01:28] LABS: Erythrocyte Sedimentation Rate 13 mm/hr (0-20)
[2024-12-13] MEDS: hydrALAZINE HCL 20 MG/ML VL IV ONE (02:00)
[2024-12-13] MEDS: hydrALAZINE HCL 20 MG/ML VL ONE (02:05)
[2024-12-13] MEDS: NIFEdipine ER 30 MG TAB PO ONE (03:00)
[2024-12-13] MEDS: LOSARTAN POTASSIUM 50 MG TAB PO ONE (03:00)
[2024-12-13] MEDS ORDERED: ONDANSETRON HCL 4 MG/2 ML VIAL IV PRN ×2 (04:15→04:30)
[2024-12-13] MEDS ORDERED: MORPHINE SULFATE INJ 2 MG/ml SYRG IV PRN (04:15)
[2024-12-13] MEDS ORDERED: MORPHINE SULFATE 4 MG/ML SYR/VIAL IV PRN ×2 (04:30)
[2024-12-13] MEDS: MORPHINE SULFATE 4 MG/ML SYR/VIAL ONE (04:46)
--- NOTE | 2024-12-13 04:48 | DVHHPRES ---
History of Present Illness Resident Creating Document: LUMAZACH RESIDENT History of Present Illness Patient is a 59-year-old female with a past medical history of hypertension, chronic back pain, Palacio's palsy left side (about 10 years ago) presented to the ER with a chief complaint of multiple joint ache and bilateral leg swelling. Patient reports on Tuesday night she started to have swelling in both her feet, started with the left leg and then to the right leg and started to have pain in the left ankle, left knee and in the left thigh and had difficulty to walk. Patient also reported pain in the left upper extremity including the left shoulder, elbow and the wrist with the pain in the small joints of the hands as well. Patient reports back pain as well which is chronic and she takes Com[place] and codeine and muscle relaxant tizanidine. Patient denies any blurred vision, headache. She reports not being able to take deep breaths and that her breath catches when she take tries to inhale a deep. Patient denies sleep apnea, orthopnea, PND but reports that she has insomnia and takes trazodone. She also reports of gaining weight more than 70 lb in the last 6-8 months Past medical history: hypertension, chronic back pain, Palacio's palsy left side (about 10 years ago) Surgical history: 1 C section, tonsillectomy Social history: Patient lives with family and denies smoking, alcohol, drug use Family history: Patient's elder sister suffers from rheumatoid arthritis Home medications: Losartan 50 mg, trazodone 50 mg, Comfort, oxycodone, tizanidine Review of Systems Review of Systems Seen and examined at the bedside Complains of multiple joint pain including the left ankle left knee, left elbow left and right shoulder, small joints of the left hand more than the right Denies shortness of breath Allergies: Coded Allergies: Cephalexin (Unverified Allergy, Mild, ITCHING, 02/18/14) Codeine (Verified Allergy, Mild, HIVES, 11/20/10) Lisinopril (Verified Allergy, Unknown, 02/18/14) Medications Current Medications Medications Dose Ordered Sig/Mamadou Route Start Time Stop Time Status Last Admin Dose Admin Losartan Potassium 50 mg DAILY PO 12/13/24 10:00 Acetaminophen/ Hydrocodone Bitart 1 tab Q8HP PRN PO 12/13/24 00:00 Naproxen 250 mg BID PO 12/13/24 10:00 Nifedipine 60 mg DAILY PO 12/13/24 10:00 Ondansetron HCl 4 mg Q6HPRN PRN IV 12/13/24 04:15 Morphine Sulfate 2 mg Q30MP PRN IV 12/13/24 04:30 UNV Exam Vital Signs Vital Signs Date Time Temp Pulse Resp B/P (MAP) Pulse Ox O2 Delivery O2 Flow Rate FiO2 12/13/24 04:00 73 12/13/24 02:05 220/88 12/13/24 01:57 98.5 19 98 98.5 Exam Gen - no pallor, no icterus, no cyanosis, no clubbing, no LAD, no edema . Skin - Patients skin is warm and dry. HEENT - normocephalic, atraumatic, moist mucous membranes. Neck - full ROM, no LAD, no JVD Pulmonary - B/L equal breath sounds, no crackles, no wheezing, no stridor. cardiovascular - regular S1,S2 heard, no added sounds, no murmurs heard. . GI - soft, nontender abdomen. no hepatospleenomegaly. Bowel sounds normoactive Neurological - Patient is A/O X 3 . Bilateral upper extremity strength 5/5, bilateral lower extremity strength 5/5, no facial droop, normal speech, no tremor, no sensory deficiets. Labs/Xrays Labs Test 12/13/24 04:00 12/12/24 22:57 12/12/24 20:28 12/12/24 19:38 Range/Units Troponin I High Sensitivity 10 </=34 ng/L C-Reactive Protein High Sensitivity 0.22 <1.0 mg/dL Thyroid Stimulating Hormone (TSH) 1.95 0.55-4.78 uIU/mL White Blood Count 6.1 4.4-10.8 10^3/uL Red Blood Count 5.05 4.0-5.20 10^6/uL Hemoglobin 14.0 12.2-16.2 g/dL Hematocrit 41.7 36.0-46.0 % Mean Corpuscular Volume 82.6 80.0-100.0 fL Mean Corpuscular Hemoglobin 27.8 L 28.0-32.0 pg Mean Corpuscular Hemoglobin Concent 33.7 32.0-36.0 g/dL Red Cell Distribution Width 14.1 11.8-14.3 % Platelet Count 196 140-450 10^3/uL Mean Platelet Volume 8.9 6.9-10.8 fL Neutrophils (%) (Auto) 45.7 37.0-80.0 % Lymphocytes (%) (Auto) 37.9 10.0-50.0 % Monocytes (%) (Auto) 11.7 0.0-12.0 % Eosinophils (%) (Auto) 3.9 0.0-7.0 % Basophils (%) (Auto) 0.8 0.0-2.0 % Neutrophils # (Auto) 2.8 1.6-8.6 10 ^3/uL Lymphocytes # (Auto) 2.3 0.4-5.4 10 ^3/uL Monocytes # (Auto) 0.7 0-1.3 10 ^3/uL Eosinophils # (Auto) 0.2 0-0.8 10 ^3/uL Basophils # (Auto) 0 0-0.2 10 ^3/uL Nucleated Red Blood Cells 0.1 % Erythrocyte Sedimentation Rate 13 0-20 mm/hr Sodium Level 141 136-145 mmol/L Potassium Level 4.3 3.5-5.1 mmol/L Chloride Level 107 98-107 mmol/L Carbon Dioxide Level 28 20-31 mmol/L Anion Gap 6 5-15 Blood Urea Nitrogen 16 9-23 mg/dL Creatinine 0.98 0.550-1.02 mg/dL Glomerular Filtration Rate Calc 67 >90 mL/min BUN/Creatinine Ratio 16.3 10.0-20.0 Serum Glucose 90 74-106 mg/dL Calcium Level 10.0 8.7-10.4 mg/dL B-Type Natriuretic Peptide 38.11 0-100 pg/mL Assessment/Plan Assessment/Plan ?Rheumatoid arthritis ?Seronegative spondyloarthropathy Hypertensive urgency Hypertensive heart disease Ruled out congestive heart failure - ECG shows sinus rhythm with no ST or T-wave changes - echocardiogram pending - ESR and CRP within normal limits - rheumatoid factor, KATHY, anti CCP pending - TSH normal - patient is started on naproxen - on losartan and nifedipine - CT head without contrast pending PUD prophylaxis: Protonix DVT prophylaxis: Enoxaparin Goals of care discussed with the patient for over 25 minutes. Full code Time spent: 37 minutes Plan discussed with Dr. Corona Plan discussed with: Patient My Orders Orders - ZACH GE Procedure Category Date Status Time Admit ADMIT 12/12/24 Transmitted 23:55 Oxygen By Nasal RT 12/12/24 Transmitted Cannula 23:55 Losartan Tablet PHA 12/13/24 In Process (Cozaar Tablet) 10:00 Hydrocodone-Acet PHA 12/13/24 In Process 10/325mg Tab (Comfort 00:00 Naproxen Tablet PHA 12/13/24 In Process (Naprosyn Tablet) 10:00 Kathy; Direct LAB 12/12/24 Logged 23:55 Ccp Igg/Iga Antibody LAB 12/12/24 Logged 23:55 Echo 2d Mode Cardiac US 12/12/24 Logged DOP 23:55 Cardiac DIET 12/13/24 Transmitted Diet-2gna,Lofat,Lochol Breakfast Pelvis Ap XY 12/13/24 Logged 02:48 Urinalysis LAB 12/13/24 Logged 02:48 Nifedipine Er PHA 12/13/24 In Process (Procardia Xl 10:00 Complete Blood Count LAB 12/13/24 Logged 05:00 Comprehensive LAB 12/13/24 Logged Metabolic Panel 05:00 Ondansetron Hcl PHA 12/13/24 In Process (Zofran) 04:15 Date of Service: Dec 12, 2024 Billing Provider: CRYSTAL CORONA MD Common Visit Codes: 27692-[id number] INP/OBS CARE (HIGH) Secondary Visit Codes: 67643-[id number] CARE PLAN 30 MINUTES ZACH GE RESIDENT Dec 13, 2024 04:48
--- NOTE | 2024-12-13 05:14 | DVH ---
EXAM: XR Xy Pelvis Ap CLINICAL INDICATION: sacroiliac joint degenerative ds TECHNIQUE: X-ray xy pelvis ap. COMPARISON: None FINDINGS: . Moderate degenerative change of the sacroiliac joints, bilaterally. Constipation. No acute fracture dislocation. . IMPRESSION: Degenerative changes as above.
--- NOTE | 2024-12-13 05:44 | DVH ---
EXAM: CT HEAD WITHOUT CONTRAST INDICATION: r/o stroke TECHNIQUE: CT of the head without intravenous contrast. Coronal and sagittal reformatted images are s ubmitted. Radiation Dose : 1. Head: CT Dose: CTDI volume is 58.9 mGy. Dose-length product is 1041.9 mGy*cm The dose indicators for CT are the volume Computed Tomography (CT) Dose Index (CTDIvol) and the Dose Length Product (DLP), and are measured in units of mGy and mGy-cm, respectively. These indicators are not patient dose, but values generated from the CT scanner acquisition factors. The report includes radiation exposure data for exposures received during this examination. All CT scans at this medical facility are performed using dose modulation techniques as appropriate to a performed exam including the following: Automated exposure control was utilized; adjustment of the MA and/or KV according to patient size; and use of iterative reconstruction technique. COMPARISON: None FINDINGS: There is no evidence of acute intracranial hemorrhage, extra-axial collection, mass effect, midline s hift, herniation or hydrocephalus. Hypodensity in the left subinsular region consistent with prominent perivascular space. The ventricles, sulci and cisterns are age appropriate. The babin-white differentiation is intact. The visualized paranasal sinuses and mastoid air cells are clear. No depressed calvarial fracture. The surrounding soft tissues are unremarkable. IMPRESSION: 1. No acute intracranial abnormality.
[2024-12-13 06:02] LABS: Basophils # (auto) 0 10 ^3/uL (0-0.2); Basophils % (auto) 0.5 % (0.0-2.0); Eosinophils # (auto) 0.3 10 ^3/uL (0-0.8); Eosinophils % (auto) 4.1 % (0.0-7.0); Hematocrit 40.7 % (36.0-46.0); Hemoglobin 13.7 g/dL (12.2-16.2); Lymphocytes # (auto) 2.1 10 ^3/uL (0.4-5.4); Lymphocytes % (auto) 34.5 % (10.0-50.0); Mean Corpuscular Hemoglobin 27.6 pg (28.0-32.0); Mean Corpuscular Hgb Conc. 33.6 g/dL (32.0-36.0); Mean Corpuscular Volume 81.9 fL (80.0-100.0); Monocytes # (auto) 0.5 10 ^3/uL (0-1.3); Monocytes % (auto) 8.9 % (0.0-12.0); Neutrophils # (auto) 3.2 10 ^3/uL (1.6-8.6); Nucleated Red Blood Cells % 0.1 %; Platelet Count (auto) 189 10^3/uL (140-450); Red Blood Cells 4.96 10^6/uL (4.0-5.20); Red Cell Distribution Width 13.9 % (11.8-14.3); White Blood Cell 6.2 10^3/uL (4.4-10.8)
[2024-12-13] MEDS: PANTOPRAZOLE 40 MG TAB PO SCH (06:17)
[2024-12-13 06:23] LABS: Alanine Aminotransferase 30 U/L (7-40); Alkaline Phosphatase 86 U/L (46-116); Anion Gap 10 (5-15); BUN/Creatinine Ratio 15.8 (10.0-20.0); Blood Urea Nitrogen 15 mg/dL (9-23); Carbon Dioxide 25 mmol/L (20-31); Chloride 106 mmol/L (98-107); Glucose 98 mg/dL (74-106); Sodium 141 mmol/L (136-145)
[2024-12-13 06:24] LABS: Total Protein 7.1 g/dL (5.7-8.2)
[2024-12-13 06:25] LABS: Albumin 4.2 g/dL (3.2-4.8); Aspartate Aminotransferase 32 U/L (13-40); Bilirubin, Total 0.4 mg/dL (0.2-1.0)
[2024-12-13 06:26] LABS: Potassium 3.4 mmol/L (3.5-5.1)
--- NOTE | 2024-12-13 06:58 | DVHPNRES ---
Progress Note Date Seen: Dec 13, 2024 Resident Creating Document: LISA SHELTON RESIDENT Medical Necessity Reason Pt with a Central, PICC or Fol: No Subjective Review of Systems Patient is a 59-year-old female with a past medical history of hypertension, chronic back pain, Palacio's palsy left side (about 10 years ago) presented to the ER with a chief complaint of multiple joint ache and bilateral leg swelling for the past 3 days. Patient reports on Tuesday night she started to have swelling in both her feet, started with the left leg and then to the right leg and started to have pain in the left ankle, left knee and in the left thigh and had difficulty to walk. Patient also reported pain in the left upper extremity including the left shoulder, elbow and the wrist with the pain in the small joints of the hands as well. Patient reports back pain as well which is chronic and she takes [place] and codeine and muscle relaxant tizanidine. Also says SOB and SOB on exertion, no PND, orthopnea. Reports chest pain, pressure, intermittent, radiates to neck, no nausea or diaphorses. EKG shows NSR. Patient denies any blurred vision, headache. She reports not being able to take deep breaths and that her breath catches when she take tries to inhale a deep. Patient denies sleep apnea, orthopnea, PND but reports that she has insomnia and takes trazodone. She also reports of gaining weight more than 70 lb in the last 6-8 months Past medical history: hypertension, chronic back pain, Palacio's palsy left side (about 10 years ago) Surgical history: 1 C section, tonsillectomy Social history: Patient lives with family and denies smoking, alcohol, drug use Family history: Patient's elder sister suffers from rheumatoid arthritis, Hx of multiple AL in father, mother had stroke. Lost son 17 yr old d/t fentanyl OD Home medications: Losartan 50 mg, trazodone 50 mg, [place], oxycodone, tizanidine Patient seen and examined, has diffuse body pain and tenderness. Covid/flu pending, chest is tender. Echo pending Objective vital signs Vital Sign Date Time Temp Pulse Resp B/P (MAP) Pulse Ox O2 Delivery O2 Flow Rate FiO2 12/13/24 05:45 77 10 148/66 (93) 92 12/13/24 01:57 98.5 98.5 12/13/24 01:45 Nasal Cannula* 2 28 medications Current Medications Medications Dose Ordered Sig/Mamadou Route Start Time Stop Time Status Last Admin Dose Admin Losartan Potassium 50 mg DAILY PO 12/13/24 10:00 Acetaminophen/ Hydrocodone Bitart 1 tab Q8HP PRN PO 12/13/24 00:00 Naproxen 250 mg BID PO 12/13/24 10:00 Nifedipine 60 mg DAILY PO 12/13/24 10:00 Morphine Sulfate 2 mg Q30MP PRN IV 12/13/24 04:30 Ondansetron HCl 4 mg Q6HPRN PRN IV 12/13/24 04:30 Pantoprazole Sodium 40 mg DAILY@0600 PO 12/13/24 06:00 12/13/24 06:17 40 MG Enoxaparin Sodium 40 mg DAILY SC 12/13/24 10:00 Examination Gen - no pallor, no icterus, no cyanosis, no clubbing, no LAD, no edema . Skin - Patients skin is warm and dry. HEENT - normocephalic, atraumatic, moist mucous membranes. Neck - full ROM, no LAD, no JVD Pulmonary - B/L equal breath sounds, no crackles, no wheezing, no stridor. cardiovascular - regular S1,S2 heard, no added sounds, no murmurs heard. P alpable chest tenderness. GI - soft, nontender abdomen. no hepatospleenomegaly. Bowel sounds normoactive Neurological - Patient is A/O X 3 . Bilateral upper extremity strength 5/5, bilateral lower extremity strength 5/5, no facial droop, normal speech, no tremor, no sensory deficiets. laboratory and microbiology Laboratory Tests 12/13/24 05:19 Test 12/13/24 05:19 Range/Units Serum Glucose 98 74-106 mg/dL Labs and/or images reviewed: Labs reviewed by me, Image(s) reviewed by me Problem List/Assessment/Plan Problem List/Assessment/Plan Acute Hypoxix Respiratory Failure likely d/t Obesity Hyperventilation Syndrome -Cont 1 L nc -6 min walk test -Nebulized Albuterol q6prn -CPAP HS Diffuse myalgia and joint pain, r/o covid and flu ? Fibromyalgia ? Rheumatoid arthritis ? Ankylosing spondylitis ? Seronegative spondyloarthropathy Chronic back pain due to Hx of spinal stenosis - ESR and CRP within normal limits - covid/flu negative - rheumatoid factor, MICHAEL, anti CCP pending, HLA B27 pending - TSH normal - patient is started on naproxen - pelvic x-ray shows Moderate degenerative change of the sacroiliac joints, bilaterally. Constipation. No acute fracture dislocation. - Chest pain, r/o ACS - Hypertensive urgency - Hypertensive heart disease - Ruled out congestive heart failure - ECG shows sinus rhythm with no ST or T-wave changes - echocardiogram pending -continue nifedipine 60 mg and losartan 50 mg daily - CT head without contrast shows No acute intracranial abnormality. Obesity -Counseled regarding lifestyle measure PUD prophylaxis: Protonix DVT prophylaxis: Enoxaparin Plan discussed with patient in which all questions have been answered Goals of care discussed for more than 30 minutes, full code status Case discussed with Dr. Herrera Plan discussed with: Patient LISA SHELTON RESIDENT Dec 13, 2024 06:58
[2024-12-13 07:40] LABS: % Iron Saturation 13.7 % (15-50)
[2024-12-13 07:58] LABS: INR 1.04 (0.9-1.15); Partial Thromboplastin Time 26.6 SEC (24.5-34.5)
[2024-12-13] MEDS: HYDROcodone-ACET 10/325MG TAB PO PRN (08:18)
[2024-12-13] MEDS: LOSARTAN POTASSIUM 50 MG TAB PO SCH (10:42)
[2024-12-13] MEDS: NIFEdipine ER 30 MG TAB PO SCH (10:43)
[2024-12-13] MEDS: ENOXAPARIN SOD 40 MG/0.4 ML SYRINGE SC SCH (10:43)
[2024-12-13] MEDS: NAPROXEN 500 MG TAB PO SCH (10:44)
[2024-12-13] MEDS: MAGNESIUM OXIDE 400 MG TAB PO ONE (11:36)
[2024-12-13] MEDS: ACETAMINOPHEN 325 MG TAB PO ONE (11:36)
[2024-12-13] MEDS: BACLOFEN 10 MG TAB PO ONE (11:37)
[2024-12-13] MEDS ORDERED: ALBUTEROL SULF 2.5 MG/0.5ML(0.5%) NEB SOLN NEB ONE (12:15)
[2024-12-13] MEDS ORDERED: ALBUTEROL SULF 2.5 MG/0.5ML(0.5%) NEB SOLN NEB PRN (12:15)
[2024-12-13] MEDS: ALBUTEROL SULF 2.5 MG/0.5ML(0.5%) NEB SOLN ONE (12:30)
[2024-12-13 13:32] LABS: COVID19 ANTIGEN SOFIA FIA NEGATIVE (NEGATIVE)
[2024-12-13 13:41] LABS: Rapid Influenza A Negative (Negative); Rapid Influenza B Negative (Negative)
[2024-12-13] MEDS: ASPirin-EC 81 mg tab PO ONE (13:52)
[2024-12-13] MEDS: CYANOCOBALAMIN (B-12) 1000 MCG/1 ML VIAL IM ONE (13:53)
[2024-12-13] MEDS: ERGOCALCIFEROL 50,000 UNIT(1.25MG) CAP PO SCH (13:55)
[2024-12-13] MEDS ORDERED: HYDR-4072 PO (14:05)
[2024-12-13] MEDS ORDERED: CITA-77 PO (14:05)
[2024-12-13] MEDS ORDERED: TRAZ-228 PO (14:05)
[2024-12-13] MEDS ORDERED: TIZA-142 PO (14:05)
--- NOTE | 2024-12-13 15:42 | DVHSR ---
APPROVED REPORT EXAM: Two-dimensional and M-mode echocardiogram with Doppler and color Doppler. Blood Pressure: 161/79 mmHg INDICATION SOB RISK FACTORS Height: 64, Weight: 289 DIMENSIONS LVDd4.9 (3.8-5.7cm)LA (2D)4.7 (1.9-4.0cm)Aortic Root3.4 (2.0-3.7cm) LVDs3.2 (2.5-4.0cm)LA (MM) (1.9-4.0cm)Aortic Cusp Exc1.7 (1.5-2.0cm) EF (%) 63.0 (55-70%)Rt. Atrium4.6 (1.9-4.0cm)Asc. Aorta cm IVSd1.1 (0.7-1.1cm)RV (D) (1.8-2.4cm) PWd1.3 (0.7-1.1cm) Mitral Valve MitralMitral Stenosis E wave0.92m/sMV Mean GR.mmHg A wave0.89m/sMV Peak GR.60mmHg E/A ratio1.02D MVAcm2 DECEL [id number] 1/2 [id number] IVRTmsDop MVA2.43cm2 Aortic Valve Aortic ValveAortic Stenosis V11.50m/[place] Mean GR.9mmHg V22.05m/[place] Peak GR.17mmHg LVOT Diameter1.9 (1.8-2.4cm)Doppler AVA2.07cm2 Pulmonic Valve V21.21m/s Tricuspid Valve TR Velocity2.50m/s [id number] Conclusion lvef 55% by visual estimate normal rv function left atrium enlarged no severe valve abnormaliteis noted
[2024-12-13] MEDS: ACETAMINOPHEN 325 MG TAB PO PRN (22:00)
[2024-12-13] MEDS: CYCLOBENZAPRINE HCL 10 MG TAB PO SCH (22:00)
[2024-12-13] MEDS: ATORVASTATIN 20 MG TAB PO SCH (22:01)
[2024-12-14] VITALS (9 sets, daily range): BP systolic 102–138; BP diastolic 62–82; PULSE 63–95; RESP 16–20; TEMP 96.5–97.7; O2SAT 92–98
[2024-12-14 06:01] LABS: Anion Gap 6 (5-15); Carbon Dioxide 29 mmol/L (20-31); Potassium 3.8 mmol/L (3.5-5.1); Sodium 143 mmol/L (136-145)
[2024-12-14 06:02] LABS: Calcium 9.2 mg/dL (8.7-10.4)
[2024-12-14 06:04] LABS: Chloride 108 mmol/L (98-107)
[2024-12-14 06:07] LABS: BUN/Creatinine Ratio 18.3 (10.0-20.0); Blood Urea Nitrogen 15 mg/dL (9-23); Glucose 105 mg/dL (74-106)
[2024-12-14] MEDS: ASPirin-EC 81 mg tab PO SCH (09:56)
[2024-12-14 13:08] LABS: Anti-Nuclear Antibody Direct Negative (Negative)
--- NOTE | 2024-12-14 13:13 | ECG ---
[facility] Test Date: 2024-12-12 Test Time: 19:29:31 Pat Name: ELIO FINN Department: ER Room: 0218 Gender: F Silk Hanger: GENA : 1965 Requested By: MEHDI MODI Order Number: [id number] Reading MD: Garrett Brown Measurements Intervals Superior Rate: 75 P: 55 VA: 139 QRS: 30 QRSD: 100 T: 33 QT: 388 QTc: 434 Interpretive Statements Sinus rhythm RSR' in V1 or V2, right VCD or RVH Electronically Signed On 12-14-2024 13:13:44 PDT by Garrett Brown Please click the below link to view image of tracing.
--- NOTE | 2024-12-14 17:46 | DVHPNRES ---
Progress Note Date Seen: Dec 14, 2024 Resident Creating Document: LISA SHELTON RESIDENT Medical Necessity Reason Pt with a Central, PICC or Fol: No Subjective Review of Systems Patient is a 59-year-old female with a past medical history of hypertension, chronic back pain, Palacio's palsy left side (about 10 years ago) presented to the ER with a chief complaint of multiple joint ache and bilateral leg swelling for the past 3 days. Patient reports on Tuesday night she started to have swelling in both her feet, started with the left leg and then to the right leg and started to have pain in the left ankle, left knee and in the left thigh and had difficulty to walk. Patient also reported pain in the left upper extremity including the left shoulder, elbow and the wrist with the pain in the small joints of the hands as well. Patient reports back pain as well which is chronic and she takes [place] and codeine and muscle relaxant tizanidine. Also says SOB and SOB on exertion, no PND, orthopnea. Reports chest pain, pressure, intermittent, radiates to neck, no nausea or diaphorses. EKG shows NSR. Patient denies any blurred vision, headache. She reports not being able to take deep breaths and that her breath catches when she take tries to inhale a deep. Patient denies sleep apnea, orthopnea, PND but reports that she has insomnia and takes trazodone. She also reports of gaining weight more than 70 lb in the last 6-8 months Past medical history: hypertension, chronic back pain, Palacio's palsy left side (about 10 years ago) Surgical history: 1 C section, tonsillectomy Social history: Patient lives with family and denies smoking, alcohol, drug use Family history: Patient's elder sister suffers from rheumatoid arthritis, Hx of multiple DC in father, mother had stroke. Lost son 17 yr old d/t fentanyl OD Home medications: Losartan 50 mg, trazodone 50 mg, [place], oxycodone, tizanidine 12/13 - Patient seen and examined, has diffuse body pain and tenderness. Covid/flu pending, chest is tender. Echo pending 12/14 - patient seen and examined at the bedside. Reports feeling better but still has diffuse generalized body ache. Reported chest pain on exertion, EKG and troponin unremarkable. UA ordered to check proteinuria. One dose of Solu- Medrol and Lasix 40 mg IV given. Objective vital signs Vital Sign Date Time Temp Pulse Resp B/P (MAP) Pulse Ox O2 Delivery O2 Flow Rate FiO2 12/14/24 16:49 96.9 73 16 102/69 (80) 97 96.9 12/14/24 10:02 Room Air* 0 21 Total Intake and Output 12/13/24 12/13/24 12/14/24 15:00 23:00 07:00 Intake Total 650 ml 600 ml Balance 650 ml 600 ml medications Current Medications Medications Dose Ordered Sig/Mamadou Route Start Time Stop Time Status Last Admin Dose Admin Losartan Potassium 50 mg DAILY PO 12/13/24 10:00 12/14/24 09:56 50 MG Acetaminophen/ Hydrocodone Bitart 1 tab Q8HP PRN PO 12/13/24 00:00 12/14/24 09:57 1 TAB Naproxen 250 mg BID PO 12/13/24 10:00 12/14/24 09:57 250 MG Nifedipine 60 mg DAILY PO 12/13/24 10:00 12/14/24 09:55 60 MG Morphine Sulfate 2 mg Q30MP PRN IV 12/13/24 04:30 Ondansetron HCl 4 mg Q6HPRN PRN IV 12/13/24 04:30 Pantoprazole Sodium 40 mg DAILY@0600 PO 12/13/24 06:00 12/14/24 06:03 40 MG Enoxaparin Sodium 40 mg DAILY SC 12/13/24 10:00 12/14/24 09:57 40 MG Acetaminophen 650 mg Q6HP PRN PO 12/13/24 10:30 12/14/24 17:15 650 MG Cyclobenzaprine HCl 10 mg HS PO 12/13/24 22:00 12/13/24 22:00 10 MG Ergocalciferol 50,000 unit Q7D PO 12/13/24 12:15 12/13/24 13:55 50,000 UNIT Albuterol 2.5 mg Q6HPRN PRN NEB 12/13/24 12:15 Aspirin 81 mg DAILY PO 12/14/24 10:00 12/14/24 09:56 81 MG Atorvastatin Calcium 40 mg HS PO 12/13/24 22:00 12/13/24 22:01 40 MG Examination Gen - no pallor, no icterus, no cyanosis, no clubbing, no LAD, generalized anasarca Skin - Patients skin is warm and dry. HEENT - normocephalic, atraumatic, moist mucous membranes. Neck - full ROM, no LAD, no JVD Pulmonary - B/L equal breath sounds, no crackles, no wheezing, no stridor. cardiovascular - regular S1,S2 heard, no added sounds, no murmurs heard. P alpable chest tenderness. GI - soft, nontender abdomen. no hepatospleenomegaly. Bowel sounds normoactive Neurological - Patient is A/O X 3 . Bilateral upper extremity strength 5/5, bilateral lower extremity strength 5/5, no facial droop, normal speech, no tremor, no sensory deficiets. laboratory and microbiology Laboratory Tests 12/14/24 05:27 12/13/24 05:19 Test 12/14/24 05:27 Range/Units Serum Glucose 105 74-106 mg/dL Labs and/or images reviewed: Labs reviewed by me, Image(s) reviewed by me Problem List/Assessment/Plan Problem List/Assessment/Plan Acute Hypoxic Respiratory Failure likely d/t Obesity Hyperventilation Syndrome -weaned off oxygen. -6 min walk test -Nebulized Albuterol q6prn -CPAP HS Diffuse myalgia and joint pain, Ruled out covid and flu ? Fibromyalgia ? Rheumatoid arthritis ? Ankylosing spondylitis ? Seronegative spondyloarthropathy Chronic back pain due to Hx of spinal stenosis - ESR and CRP within normal limits - covid/flu negative - anti CCP pending, HLA B27 pending - TSH normal, KATHY negative, rheumatoid factor negative. - patient is started on naproxen - pelvic x-ray shows Moderate degenerative change of the sacroiliac joints, bilaterally. Constipation. No acute fracture dislocation. - follow up with a UA, urine protein ratio, C3-C4 - Chest pain, likely stable angina - Hypertensive urgency - Hypertensive heart disease - Ruled out congestive heart failure - ECG shows sinus rhythm with no ST or T-wave changes - echocardiogram shows LVEF 55%, left ventricular hypertrophy -continue nifedipine 60 mg and losartan 50 mg daily - CT head without contrast shows No acute intracranial abnormality. - outpatient Cardiology follow up for stable angina - 1 dose of Lasix 40 mg IV and Solu-Medrol 40 mg started Obesity -Counseled regarding lifestyle measure PUD prophylaxis: Protonix DVT prophylaxis: Enoxaparin Plan discussed with patient in which all questions have been answered Goals of care discussed for more than 30 minutes, full code status Case discussed with Dr. Herrera Plan discussed with: Patient My Orders My Orders Orders - LSIA SHELTON Procedure Category Date Status Time Kathy Direct W/Reflex LAB 12/14/24 In Process To Comp. 11:50 Electrocardigram EKG 12/14/24 Logged 12:59 LISA SHELTON Dec 14, 2024 17:46
[2024-12-14 18:26] LABS: Urine Bacteria FEW /hpf (None Seen); Urine Blood Negative /uL (Negative); Urine Clarity Clear (Clear); Urine Color Dark-Yellow (Yellow); Urine Mucus FEW (None Seen); Urine Protein, UAD 1+ (Negative); Urine Specific Gravity 1.039 (1.001-1.035); Urine Squamous Epithelial Cell FEW /hpf (<5); Urine Urobilinogen 2 mg/dL (Negative); Urine WBC 4 /HPF (0-5); Urine pH 6.5 (5.0-9.0)
[2024-12-14 18:30] LABS: Benzodiazephine Screen, Urine Neg (NEGATIVE)
[2024-12-14 18:32] LABS: Amphetamine Screen, Urine Neg (NEGATIVE); Barbiturate Scree,Urine Neg (NEGATIVE); Cannabinoid Screen, Urine Neg (NEGATIVE); Cocaine Screen, Urine Neg (NEGATIVE); Opiate Scree,Urine Pos (NEGATIVE); Phencyclidine Screen, Urine Neg (NEGATIVE)
[2024-12-14 18:37] LABS: Creatinine, Urine 243.9 mg/dL (30.0-125.0)
[2024-12-14] MEDS: methylPREDNISolone SOD SUCC 40 MG/ML VL IV ONE (19:06)
[2024-12-14] MEDS: FUROSEMIDE 40 MG/4 ML VIAL IV ONE (19:07)
[2024-12-15 01:00] VITALS: BP 123/78; PULSE 80; RESP 18; TEMP 96.9; O2SAT 95
[2024-12-15 05:00] VITALS: BP 126/77; PULSE 75; RESP 20; TEMP 96.4; O2SAT 97
[2024-12-15 06:29] LABS: Anion Gap 7 (5-15); Carbon Dioxide 25 mmol/L (20-31); Chloride 107 mmol/L (98-107); Potassium 4.1 mmol/L (3.5-5.1); Sodium 139 mmol/L (136-145)
[2024-12-15 06:35] LABS: BUN/Creatinine Ratio 21.5 (10.0-20.0); Blood Urea Nitrogen 17 mg/dL (9-23)
[2024-12-15 06:36] LABS: Glucose 158 mg/dL (74-106)
[2024-12-15 09:00] VITALS: BP 143/80; PULSE 73; RESP 18; TEMP 97; O2SAT 97
--- NOTE | 2024-12-15 09:55 | ECG ---
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
[2024-12-15 10:00] VITALS: O2SAT 97
[2024-12-15 11:07] LABS: Anti-Nuclear Antibody Direct Negative (Negative)
[2024-12-15 11:07] LABS: CCP IgG/IgA Antibody 0 units (0-19)
[2024-12-15 12:49] VITALS: BP 146/90; PULSE 74; RESP 20; TEMP 96.6; O2SAT 97
--- NOTE | 2024-12-15 13:50 | DVHDSRES ---
Discharge Summary Date of Admission Resident Creating Document: ARLENE THOMPSON RESIDENT Dec 12, 2024 at 23:55 Date of Discharge: Dec 15, 2024 Admitting Diagnosis Generalized body pain Labs/Diagnostic Data: Laboratory Results Test 12/15/24 05:43 12/14/24 16:53 12/14/24 14:21 12/13/24 12:25 Sodium Level 139 mmol/L (136-145) Potassium Level 4.1 mmol/L (3.5-5.1) Chloride Level 107 mmol/L (98-107) Carbon Dioxide Level 25 mmol/L (20-31) Anion Gap 7 (5-15) Blood Urea Nitrogen 17 mg/dL (9-23) Creatinine 0.79 mg/dL (0.550-1.02) Glomerular Filtration Rate Calc 87 mL/min (>90) BUN/Creatinine Ratio 21.5 (10.0-20.0) Serum Glucose 158 mg/dL (74-106) Calcium Level 10.0 mg/dL (8.7-10.4) Urine Color Dark-yellow (Yellow) Urine Clarity Clear (Clear) Urine pH 6.5 (5.0-9.0) Urine Specific [place] 1.039 (1.001-1.035) Urine Protein 1+ (Negative) Urine Ketones Trace (Negative) Urine Blood Negative /uL (Negative) Urine Nitrite Negative (Negative) Urine Bilirubin Negative (Negative) Urine Urobilinogen 2 mg/dL (Negative) Urine Leukocyte Esterase Trace /uL (Negative) Urine RBC 3 /hpf (0 - 4) Urine Microscopic WBC 4 /HPF (0-5) Urine Squamous Epithelial Cells Few /hpf (<5) Urine Bacteria Few /hpf (None Seen) Urine Mucus Few (None Seen) Urine Creatinine 243.90 mg/dL (30.0-125.0) Urine Sodium 77 mmol/L (40-220) Urine Glucose Normal mg/dL (Normal) Urine Total Protein 56.0 mg/dL (1-14) Urine Opiates Screen Pos (NEGATIVE) Urine Fentanyl Screen Neg (NEGATIVE) Urine Barbiturates Screen Neg (NEGATIVE) Urine Phencyclidine Screen Neg (NEGATIVE) Urine Amphetamines Screen Neg (NEGATIVE) Urine Benzodiazepines Screen Neg (NEGATIVE) Urine Cocaine Screen Neg (NEGATIVE) Urine Cannabinoids Screen Neg (NEGATIVE) Troponin I High Sensitivity 5 ng/L (</=34) Anti-Nuclear Antibody Screen Negative (Negative) Influenza Type A Antigen Negative (Negative) Influenza Type B Antigen Negative (Negative) SARS-CoV-2 Antigen (Rapid) Negative (NEGATIVE) Test 12/13/24 07:55 12/13/24 07:23 12/13/24 05:19 12/12/24 20:28 Prothrombin Time 11.0 sec (9.3-11.8) Prothrombin Time INR 1.04 (0.9-1.15) Activated Partial Thromboplast Time 26.6 SEC (24.5-34.5) White Blood Count 6.2 10^3/uL (4.4-10.8) Red Blood Count 4.96 10^6/uL (4.0-5.20) Hemoglobin 13.7 g/dL (12.2-16.2) Hematocrit 40.7 % (36.0-46.0) Mean Corpuscular Volume 81.9 fL (80.0-100.0) Mean Corpuscular Hemoglobin 27.6 pg (28.0-32.0) Mean Corpuscular Hemoglobin Concent 33.6 g/dL (32.0-36.0) Red Cell Distribution Width 13.9 % (11.8-14.3) Platelet Count 189 10^3/uL (140-450) Mean Platelet Volume 9.0 fL (6.9-10.8) Neutrophils (%) (Auto) 52.0 % (37.0-80.0) Lymphocytes (%) (Auto) 34.5 % (10.0-50.0) Monocytes (%) (Auto) 8.9 % (0.0-12.0) Eosinophils (%) (Auto) 4.1 % (0.0-7.0) Basophils (%) (Auto) 0.5 % (0.0-2.0) Neutrophils # (Auto) 3.2 10 ^3/uL (1.6-8.6) Lymphocytes # (Auto) 2.1 10 ^3/uL (0.4-5.4) Monocytes # (Auto) 0.5 10 ^3/uL (0-1.3) Eosinophils # (Auto) 0.3 10 ^3/uL (0-0.8) Basophils # (Auto) 0 10 ^3/uL (0-0.2) Nucleated Red Blood Cells 0.1 % Hemoglobin A1c 5.7 % A1C (<5.7) Magnesium Level 1.8 mg/dL (1.6-2.6) Iron Level 50 ug/dL (50-170) Total Iron Binding Capacity 365 ug/dL (250-425) Percent Iron Saturation 13.7 % (15-50) Total Bilirubin 0.4 mg/dL (0.2-1.0) Aspartate Amino Transferase (AST) 32 U/L (13-40) Alanine Aminotransferase (ALT) 30 U/L (7-40) Alkaline Phosphatase 86 U/L (46-116) Creatine Kinase 91 U/L (34-145) Total Protein 7.1 g/dL (5.7-8.2) Albumin 4.2 g/dL (3.2-4.8) Vitamin B12 Level 394 pg/mL (211-911) Vitamin D 25-Hydroxy 31.4 ng/mL (30.0-100) Thyroid Stimulating Hormone (TSH) 2.53 uIU/mL (0.55-4.78) Rheumatoid Factor <10.0 IU/mL (<14.0) Anti-Cyclic Citrullinated Peptide 0 units (0-19) C-Reactive Protein High Sensitivity 0.22 mg/dL (<1.0) Test 12/12/24 19:38 Erythrocyte Sedimentation Rate 13 mm/hr (0-20) B-Type Natriuretic Peptide 38.11 pg/mL (0-100) Other Laboratory Tests 12/15/24 05:43 12/13/24 05:19 Brief Hx & Hospital Course: Patient is a 59-year-old female with a past medical history of hypertension, chronic back pain, Palacio's palsy left side (about 10 years ago) presented to the ER with a chief complaint of multiple joint ache and bilateral leg swelling for the past 3 days. Patient reports on Tuesday night she started to have swelling in both her feet, started with the left leg and then to the right leg and started to have pain in the left ankle, left knee and in the left thigh and had difficulty to walk. Patient also reported pain in the left upper extremity including the left shoulder, elbow and the wrist with the pain in the small joints of the hands as well. Patient reports back pain as well which is chronic and she takes [place] and codeine and muscle relaxant tizanidine. Also says SOB and SOB on exertion, no PND, orthopnea. Reports chest pain, pressure, intermittent, radiates to neck, no nausea or diaphoreses. EKG shows NSR. Patient denies any blurred vision, headache. She reports not being able to take deep breaths and that her breath catches when she take tries to inhale a deep. Patient denies sleep apnea, orthopnea, PND but reports that she has insomnia and takes trazodone. She also reports of gaining weight more than 70 lb in the last 6-8 months. ESR and CRP within normal limits, covid/flu negative, TSH normal, MICHAEL negative, rheumatoid factor negative., pelvic x-ray shows Moderate degenerative change of the sacroiliac joints, bilaterally. Constipation. No acute fracture dislocation, ECG shows sinus rhythm with no ST or T-wave changes, echocardiogram shows LVEF 55%, left ventricular hypertrophy, patient is treated with fluid management, pain control, on [place] Lasix and IV Solu-Medrol 40 mg was given, patient also got breathing treatment. Two the patient is feeling better and there is no obvious edema, patient is hemodynamically stable, patient is going to be discharged home, patient is advised to follow up with distribution manager as scheduled, and also advised to follow up with primary care doctor in 1-2 weeks Condition at Discharge: Stable Final Diagnosis/Problems List # Acute Hypoxic Respiratory Failure likely d/t Obesity Hypoventilation Syndrome # Diffuse myalgia and joint pain, # Ruled out covid and flu # ? Fibromyalgia # ? Rheumatoid arthritis # ? Ankylosing spondylitis # ? Seronegative spondyloarthropathy # Chronic back pain due to Hx of spinal stenosis # Chest pain, likely stable angina # Hypertensive urgency # Hypertensive heart disease # Ruled out congestive heart failure # Obesity Discharge Disposition: Home SNF Discharge Will this Physician continue t: No Discharge Instruct/Medications Diet: Cardiac 2g Na,low cholest Activity: No Restrictions, As Tolerated Follow Up/Referral: Follow up with distribution manager as scheduled Follow up with PCP in 1-2 weeks Medications: Continue current home medications Discharge Statement: "Patient was advised to return to the ER or call 911 if any headaches, dizziness, shortness of breath, chest pain, abdominal pain, bleeding, fevers, or worsening of medical condition. Patient was counseled about treatment plan, medications, possible side effects, patientverbalized understanding. All questions were answered to the best of my ability. This discharge took greater then 30 minutes in planning, reviewing documentation, counseling the patient, and discussing with other team members." ASSESSMENT ASSESSMENT Assessment # Acute Hypoxic Respiratory Failure likely d/t Obesity Hypoventilation Syndrome # Diffuse myalgia and joint pain, # Ruled out covid and flu # ? Fibromyalgia # ? Rheumatoid arthritis # ? Ankylosing spondylitis # ? Seronegative spondyloarthropathy # Chronic back pain due to Hx of spinal stenosis # Chest pain, likely stable angina # Hypertensive urgency # Hypertensive heart disease # Ruled out congestive heart failure # Obesity Date of Service: Dec 15, 2024 Billing Provider: JOSH SWEET MD Common Visit Codes: 19932-DTN/OBS DISCH DAY >30min ARLENE THOMPSON RESIDENT Dec 15, 2024 13:50 JOSH SWEET MD Dec 15, 2024 22:25
[2024-12-15 14:09] VITALS: BP 143/80; PULSE 73; RESP 18; TEMP 97; O2SAT 97
== END 2024-12-15 14:37 | disposition home or self-care (01) | DRG 199 ==
LOC: ER 18:53 → OVERFLOW 23:55 → CENTRAL 12-13 11:12
PROVIDERS: ADMIT Student in an Organized Health Care Education/Training Program; ATTEND Emergency Medicine
DX: I16.0 Hypertensive urgency (principal); J96.01 Acute respiratory failure with hypoxia; I11.9 Hypertensive heart disease without heart failure; I20.89 Other forms of angina pectoris; M06.9 Rheumatoid arthritis, unspecified; E66.2 Morbid (severe) obesity with alveolar hypoventilation; M79.7 Fibromyalgia; M45.9 Ankylosing spondylitis of unspecified sites in spine; G89.29 Other chronic pain; M54.9 Dorsalgia, unspecified; M25.572 Pain in left ankle and joints of left foot; Z20.822 Contact with and (suspected) exposure to COVID-19; K59.00 Constipation, unspecified; G51.0 Bell's palsy; Z98.891 History of uterine scar from previous surgery; Z88.1 Allergy status to other antibiotic agents; Z88.5 Allergy status to narcotic agent; Z88.8 Allergy status to other drugs, medicaments and biological substances; Z79.899 Other long term (current) drug therapy; Z68.42 Body mass index [BMI] 45.0-49.9, adult
CPT/HCPCS: 36415; 70450; 71045; 72170; 80048; 80053; 80307; 81001; 82306; 82550; 82570; 82607; 83036; 83540; 83550; 83735; 83880; 84156; 84300; 84443; 84484; 85025; 85610; 85652; 85730; 86038; 86141; 86200; 86431; 86812; 87426; 87804; 93005; 93306; 96374; 99291; G0378; J2405